=== PATIENT | male | born 1960 | race Caucasian/White ===

== ENCOUNTER 2023-08-06 06:33 | Day surgery (SDC) | payer MEDICARE, SELFPAY ==
[2023-08-06 13:20] VITALS: BP 147/90
[2023-08-06 13:22] VITALS: BMI 30.1
[2023-08-06 13:24] VITALS: BMI 30.1
[2023-08-06 13:33] LABS: Glucose - Point of Care 144 mg/dl (70-99)
[2023-08-06 15:56] VITALS: BP 134/77
[2023-08-06 16:00] VITALS: BP 135/78
[2023-08-06 16:15] VITALS: BP 140/83
[2023-08-06 16:17] LABS: Glucose - Point of Care 107 mg/dl (70-99)
[2023-08-06 16:32] VITALS: BP 137/98
== END 2023-08-06 17:20 | disposition home or self-care (01) ==
LOC: SDS 06:33
PROVIDERS: ATTENDING PHYSICIAN Podiatrist Foot & Ankle Surgery
DX: M21.961 Unspecified acquired deformity of right lower leg (principal); L97.522 Non-pressure chronic ulcer of other part of left foot with fat layer exposed; Z87.39 Personal history of other diseases of the musculoskeletal system and connective tissue
CPT/HCPCS: 28112; 73620; 82962